=== PATIENT | female | born 1980 | race Caucasian/White ===

== ENCOUNTER 2023-10-01 13:55 | Outpatient (CLI) | payer BC, SELFPAY ==
--- NOTE | 2023-10-01 14:49 | ECG_ITS ---
Measurements Intervals [place] Rate: 57 P: 58 NM: 149 QRS: 26 QRSD: 89 T: 48 QT: 435 QTc: 424 Interpretive Statements SINUS BRADYCARDIA NO PREVIOUS ECG AVAILABLE FOR COMPARISON Electronically Signed On 10-03-2023 10:12:43 [employer] by Medardo Langford M.D.
[2023-10-01 15:17] LABS: Basophils Absolute Auto 0.1 K/mm3 (0.0-0.1); Basophils Percent Auto 1.3 % (0.2-1.2); Eosinophils Absolute Auto 0.1 K/mm3 (0-0.3); Eosinophils Percent Auto 1.3 % (0-4.4); Hematocrit 39.8 % (37.0-47.0); Hemoglobin 13.1 g/dL (12.0-15.0); Immature Granulocyte Absolute 0.01 K/mm3 (0.00-0.031); Immature Granulocyte Percent A 0.2 % (0-0.5); Lymphocytes Percent Auto 39.6 % (18.3-44.2); Mean Corpuscular HGB Conc 32.9 g/dl (32-36); Mean Corpuscular Hemoglobin 30.9 pg (26-34); Mean Corpuscular Volume 93.9 fl (80-100); Mean Platelet Volume 9.9 fl (7.4-10.4); Monocytes Absolute Auto 0.5 K/mm3 (0.1-0.6); Monocytes Percent Auto 9.1 % (2.6-8.5); Neutrophils Absolute Auto 2.6 K/mm3 (1.3-6.7); Neutrophils Percent Auto 48.5 % (45.5-73.1); Platelet Count Result 312 k/mm3 (150-375); Red Blood Count 4.24 M/mm3 (4.2-5.4); Red Cell Distribution Width 11.9 % (11.5-14.5); White Blood Count 5.3 K/mm3 (4.5-10.0)
[2023-10-01 15:28] LABS: INR 0.9; Partial Thromboplastin Time 27.3 SECONDS (22.3-36.8); Prothrombin Time 12.4 Seconds (11.1-14.7)
[2023-10-01 15:29] LABS: Alanine Aminotransferase 23 U/L (6-35); Albumin Level 4.7 g/dL (3.5-5.1); Alkaline Phosphatase 71 U/L (38-126); Anion Gap 8 mmol/L (8-16); Aspartate Amino Transferase 25 U/L (14-36); Bilirubin,Total 0.8 mg/dL (0.2-1.3); Blood Urea Nitrogen 12 mg/dL (7-17); Calcium 9.4 mg/dL (8.4-10.2); Carbon Dioxide 26 mmol/L (22-30); Chloride 104 mmol/L (98-107); Estimated Glomerular Filt Rate > 60; Glucose 92 mg/dL (65-110); Potassium 4.2 mmol/L (3.4-5.0); Sodium 138 mmol/L (137-145)
== END 2023-10-01 13:56 | disposition home or self-care (01) ==
PROVIDERS: Visit Provider Urology
DX: Z01.818 Encounter for other preprocedural examination (principal); N81.4 Uterovaginal prolapse, unspecified
CPT/HCPCS: 36415; 80053; 85025; 85610; 85730; 86850; 86900; 86901; 93005

== ENCOUNTER 2023-10-11 00:23 | Day surgery (SDC) | payer BC, SELFPAY ==
--- NOTE | 2023-10-01 14:24 | PC.NURSE ---
Report to the Outpatient Waiting Room, entrance under the green pavilion located off [facility], at time __0930 on date __10/11/23____. Planned Procedure Time: _1130 . Time changes happen often and if your time is changed the preop area will call you the afternoon before. - You and your visitor will be asked to self-screen and do not enter if you have any COVID symptoms. - A mask is optional within the hospital at this time. Patients may have clear liquids (water, carbonated beverages, clear teas, apple juice) until 3 hours prior to surgery ( 8:30 AM)with a maximum of 20 ounces. - No food from midnight until time of surgery Take the following medications with a SIP of water the morning of surgery: NONE DO NOT STOP ANY OF YOUR OTHER PRESCRIPTION MEDICATIONS PRIOR TO SURGERY ?EXCEPT THE FOLLOWING Medications to discontinue per physician HOLD MULTIVITAMIN 3 DAYS PRE OP.LAST DOSE 10/07/23 Please no make-up, nail italian, hairspray, perfume, deodorant, or body powder the day of surgery. No jewelry (including any body piercings) or valuables the day of surgery, leave them at home. Please take a shower or bath the night before, or the morning of, surgery with an antibacterial soap. Wear comfortable, loose fitting clothing. Children are encouraged to wear pajamas. - Jewelry must be removed prior to entering the operating room. Rings and piercings that are not removed may be cut off. - The hospital will not accept responsibility for valuables. - Please leave all valuables, including medications, at home the day of surgery. If you are going home after surgery, a licensed truck driver's offsider must drive you home. - NO public transportation without another adult if you receive anesthesia. - We recommend that an adult stay with you for 24 hours following discharge. - We also recommend that you do not drive, make important decision, drink alcoholic beverages, or take any drugs that were not prescribed by your health care provider for at least 24 hours after your discharge time. Follow any additional instructions given to you from your surgeon. If you or anyone in your household have experienced Covid symptoms in the past week, please notify your surgeon or the nurse liaison at the phone number below for possible testing. VERBAL AND WRITTEN instructions given to __PATIENT and asked if any additional questions and then verbalized understanding. Patient advised to call surgeon office or pre surgery nurse liaison [phone] if any additional questions.
[2023-10-01 14:41] VITALS: BP 136/95; PULSE 61; RESP 18; TEMP 36.4; O2SAT 99; BMI 27.0
--- NOTE | 2023-10-10 21:10 | PM.IMHP ---
H&P: HPI History of Present Illness Date/Time: 10/10/23 21:10 Chief Complaint: uterine prolapse Narrative: 42-year-old with uterine prolapse. No stress incontinence. Desires surgical correction Review of Systems Review of Systems: All systems reviewed & are unremarkable except as noted in HPI and below PMFSH Social History Social History Smoking packs per day: 0.5 Smoking cigarettes per day: 10.0 Years smoked: 20 Smoking pack-years: 10.00 Smoking status: Former smoker Tobacco type: cigarettes Smoking end date: 10/25/15 Alcohol intake: current Drinks per week: 10 Living arrangements: with family Spiritual care concerns: No Meds Home Medications and Allergies Home Medications Medication Instructions Recorded Confirmed Type ymxmzxnf-xsn-kylg-FA-Ca carb-vit K 1 tablet PO DAILY 10/01/23 10/01/23 History 18 mg iron-400 mcg-500 mg tablet Allergies Allergy/AdvReac Type Severity Reaction Status Date / Time bacitracin AdvReac Rash Verified 10/01/23 14:10 [From Polysporin(bacitracin base)] polymyxin B AdvReac Rash Verified 10/01/23 14:10 [From Polysporin(bacitracin base)] Exam Narrative: no acute distress normal breathing alert and oriented x3 uterine prolapse +3 Assessment and Plan Assessment and plan (1) Uterine prolapse: Code(s): N81.4 - Uterovaginal prolapse, unspecified Status: Acute Plan robotic colpopexy. Understand the risks of bleeding, infection, damage to surrounding organs, damage to the urinary tract, postoperative voiding dysfunction including incontinence and retention, hip and leg pain, dyspareunia, recurrence of prolapse. We also discussed issues surrounding pelvic organ prolapse surgery in young women. She agrees to proceed.
[2023-10-11] VITALS (9 sets, daily range): BP systolic 113–154; BP diastolic 52–93; PULSE 58–93; RESP 14–19; TEMP 36–36.8; O2SAT 97–100
--- NOTE | 2023-10-11 07:16 | WPDHPUPDATE1 ---
History and Physical Update Update Date/Time: 10/11/23 07:16 History and Physical has been reviewed, including an updated exam of the patient. There are NO changes in the patient's condition. Risks, benefits, and alternatives have been discussed and questions answered. Patient agrees to proceed with procedure.
[2023-10-11] MEDS: LACTATED RINGERS 1,000 ML 30 ML IV CONT ×3 (10:00→16:42)
[2023-10-11] MEDS: KETOROLAC 15 MG/ML VIAL (*BKC) IV PUSH (10:28)
[2023-10-11] MEDS: ACETAMINOPHEN 500 MG TABLET 1000 MG PO (10:28)
--- NOTE | 2023-10-11 10:30 | P.PNAN_ITS ---
Anes - Initial Pre Proc Eval Procedure: Operation Date: 10/11/23 11:30 Proposed Procedures p Robotic Sacrocolpopexy - John Paul Chaudhry MD s Urethral Sling - John Paul Chaudhry MD s Robotic Assisted Supracervical Hysterectomy Bilateral Salpingectomy - Verónica CaroleChai Carlson DO Date/Time: 10/11/23 10:30 Surgeon: John Paul Chaudhry MD Pre Op Diagnosis: uterine prolapse, stress incont Patient Data Age: 42 Gender: F Height: 1.83 m Weight: 90 kg Last Vital Signs Temp 36.0 C L 10/11/23 10:20 Pulse 58 L 10/11/23 10:20 Resp 16 10/11/23 10:20 BP 154/93 H 10/11/23 10:20 Pulse Ox 100 10/11/23 10:20 O2 Del Method Room Air 10/11/23 10:20 Allergies Allergy/AdvReac Type Severity Reaction Status Date / Time bacitracin AdvReac Rash Verified 10/11/23 10:19 [From Polysporin(bacitracin base)] polymyxin B AdvReac Rash Verified 10/11/23 10:19 [From Polysporin(bacitracin base)] Home Medications Medication Instructions Recorded Confirmed Type foguofsf-aot-fvec-FA-Ca carb-vit K 1 tablet PO DAILY 10/01/23 10/11/23 History 18 mg iron-400 mcg-500 mg tablet Patient hx anesthesia problems: none Family hx anesthesia problems: none Results Review: All pre-operative results and documents have been reviewed as part of the pre- operative evaluation. [facility] Social History Social History Smoking packs per day: 0.5 Smoking cigarettes per day: 10.0 Years smoked: 20 Smoking pack-years: 10.00 Smoking status: Former smoker Tobacco type: cigarettes Smoking end date: 10/25/15 Alcohol intake: current Drinks per week: 10 Living arrangements: with family Spiritual care concerns: No Anes - Eval Final PreProcedure Day of Procedure 10/11/23 10:30 Patient weight: overweight Heart: regular rate and rhythm Lungs: clear to auscultation Airway: Mallampati scale class II Neurological: alert and oriented Last oral intake: >/= 8 hours ASA classification: II Emergent: no Anesthesia type and monitoring: general ETT and standard monitoring Results Review: All pre-operative results and documents have been reviewed as part of the pre- operative evaluation. Informed Consent: The patient's anesthetic plan and its attendant risks and benefits were discussed with the patient/family/POA. Questions were solicited and answers provided to the satisfaction of the patient/family/POA.
--- NOTE | 2023-10-11 12:29 | PM.IMHP ---
H&P: HPI History of Present Illness Date/Time: 10/11/23 12:29 Chief Complaint: I'm here for a hysterectomy Narrative: Shelby presents for supracervical hysterectomy, bilateral salpingectomy for uterovaginal prolapse. Review of Systems Review of Systems: All systems reviewed & are unremarkable except as noted in HPI and below [facility] Social History Social History Smoking packs per day: 0.5 Smoking cigarettes per day: 10.0 Years smoked: 20 Smoking pack-years: 10.00 Smoking status: Former smoker Tobacco type: cigarettes Smoking end date: 10/25/15 Alcohol intake: current Drinks per week: 10 Living arrangements: with family Spiritual care concerns: No Meds Home Medications and Allergies Home Medications Medication Instructions Recorded Confirmed Type uqjexgpt-ykg-vauk-FA-Ca carb-vit K 1 tablet PO DAILY 10/01/23 10/11/23 History 18 mg iron-400 mcg-500 mg tablet Allergies Allergy/AdvReac Type Severity Reaction Status Date / Time bacitracin AdvReac Rash Verified 10/11/23 10:19 [From Polysporin(bacitracin base)] polymyxin B AdvReac Rash Verified 10/11/23 10:19 [From Polysporin(bacitracin base)] Vital Signs Vital Signs - 24 hr 10/11/23 10:20 Temperature 36.0 C L Pulse Rate 58 L Respiratory Rate 16 Blood Pressure 154/93 H Pulse Oximetry 100 Oxygen Delivery Room Air Exam Const: General: comfortable and no acute distress Eyes: General: appearance normal, both eyes and all related structures Sclera: sclerae normal Resp: Effort & Inspection: normal respiratory effort Auscultation: clear to auscultation bilaterally Cardio: Rate: regular rate Rhythm: regular rhythm GI: GI Palp: Yes Soft to palpation Auscultation: normal bowel sounds Psych: Mental Status: mental status grossly normal Assessment and Plan Assessment and plan (1) Uterine prolapse: Code(s): N81.4 - Uterovaginal prolapse, unspecified Status: Acute Plan Robotic assisted laparoscopic supracervical hysterectomy, bilatral salpingectomy.
--- NOTE | 2023-10-11 12:31 | WPDHPUPDATE1 ---
History and Physical Update Update Date/Time: 10/11/23 12:31 History and Physical has been reviewed, including an updated exam of the patient. There are NO changes in the patient's condition. Risks, benefits, and alternatives have been discussed and questions answered. Patient agrees to proceed with procedure.
[2023-10-11] MEDS: ceFAZolin 2 GM/D5W 50 ML 2 GM/50 ML BAG IVPB (12:35)
[2023-10-11] MEDS: metroNIDAZOLE 500 MG/ISO 100ML 500 MG/100 ML BAG 100 MG IVPB (12:35)
[2023-10-11] MEDS: BUPIVACAINE/EPINEPHRINE 0.5% 50 ML VIAL 20 ML INFILTRATE (13:04)
--- NOTE | 2023-10-11 14:28 | P.OP_ITS ---
Procedure Note - Detailed Date of Procedure 10/11/23 Pre-op Diagnosis Uterovaginal prolapse Post-op Diagnosis Same Procedure Performed Robotic assisted supracervical hysterectomy, drainage of right ovarian cyst, bilateral salpingectomy. Sacral colpopexy with Dr. Chaudhry Surgeon Verónica Carlson, DO Anesthesia General Findings Normal appearing pelvic organs. Simple cyst on the right ovary. Enlarged uterus. Description of Procedure Patient was taken to the operating room where she was placed under general anesthesia. She was prepped and draped in the normal sterile fashion in a dorsal lithotomy position. Preoperative antibiotics were given. Please see Dr. Chaudhry's note for further instructions on trocar placement. Once the robot was successfully docked, I presented to the console. Starting on the right-hand side, the right tube and ovary were elevated. The right simple cyst was drained and clear fluid was suctioned out. The right fallopian tube was then cauterized and transected off and handed off through the fast food assistant restaurant manager port. The utero-ovarian ligament was cauterized and transected and this dissection was carried up and through the round ligament. The 2 leaves of the broad ligament were opened and the anterior posterior leaves were down to skeletonize the uterine vessels. The vessels were cauterized and transected and minimal bladder flap was created. The procedure was repeated in identical fashion on the left-hand side. The left uterine vessels were skeletonized, cauterized and transected. Once the edges of the cervix were identified, the uterus was bivalved as it was too large to fit through a single incision intact. Each piece was then cut in half again for a total of 4 specimen pieces. The uterus was then removed from the cervix at the level of the internal os. Specimen pieces were placed in a specimen bag. Dr. Chaudhry then returned to the OR to complete his portion of the procedure. When I left the OR the patient was in stable condition and her family was updated. Preop counts had been correct. Estimated Blood Loss 10 Pathology Yes Complications No immediate complications Condition Stable Disposition PACU
--- NOTE | 2023-10-11 16:00 | W.PM.PROC2 ---
Procedure Note - Detailed Date of Procedure 10/11/23 Pre-op Diagnosis uterine prolapse Post-op Diagnosis Same Procedure Performed Robotic assisted laparoscopic sacral colpopexy Cystoscopy Surgeon John Paul Chaudhry MD Anesthesia General Indications this is a woman with uterine prolapse without stress incontinence. She desires surgical correction. She is here for the above. She understands risks of bleeding, infection, diskitis, damage to surrounding organs, bowel injury, bowel obstruction, mesh related complications including exposure and extrusion, postoperative voiding dysfunction including incontinence and retention, need for ancillary procedures, dyspareunia, recurrence of prolapse, and other perioperative intraoperative postoperative complications. She agrees to proceed. we also discussed issues surrounding prolapse repair in young women and the risk of rib Findings See below Description of Procedure She was correctly identified. Informed consent obtained. She from the operating room. She was given general anesthesia. She was given appropriate perioperative antibiotics. She was placed a low lithotomy position. Pressure points were padded. A time-out performed. I marked out the skin 3 fingerbreadths cephalad to the umbilicus. I anesthetized the skin. I incised the skin. I dissected down to the fascia. I grasped the fascia with Gregory clamps. I entered the fascia sharply in a Retana type technique. I placed sutures for later fascial closure. I placed a midline trocar. I examined the abdomen. There is no sign of any injury. Under direct vision I placed 2 additional trocars in the right upper quadrant and 2 additional trocars the left upper quadrant. She was placed in steep Trendelenburg. The robot was docked. Her knocker off completed their portion of the procedure. Please see that operative report for details. I then sat at the console. The Sizer in the vagina created plane on the anterior and posterior vaginal wall. I took great care not to injure the vagina, bladder, or rectum. I introduced the mesh into the abdomen. I sewed the anterior leaflet of mesh on the anterior vaginal wall. I sewed the posterior leaflet of mesh on the posterior vaginal wall. This was done with several sutures of 2 0 [place]-Bunny. I reflected the colon laterally. I opened the posterior peritoneum over the sacral promontory. I carried this into the cul-de-sac. I freed up the edges for later retroperitonealization. 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 it was completely located over top of the sacral promontory. This made it impossible for me to attach the mesh to the sacral promontory. I had to dissect inferiorly finding anterior longitudinal ligament of the sacrum inferior to this location. the ligament was somewhat thinner in this location but I still felt adequate. Again it was impossible for me to use the sacral promontory as it was completely covered by the left common iliac vein. I cleaned off all fatty tissues. I took great care not to injure the vein. I then tensioned my mesh appropriately. I did a vaginal exam the bedside. I assured prolapse reduction without undue tension. I then sewed the proximal leaflet of mesh onto the anterior longitudinal ligament of the sacrum with several sutures of 2 0 [place]Bunny. I then used a 2 0 Monocryl to completely and meticulously retroperitonealized all mesh. I allowed the colon to go back to its normal anatomic location. There is no sign of any impingement. The specimen was then removed. All ports removed. Fascia was tied down. Skin was closed with Monocryl and surgical glue. I then performed cystoscopy. There was no tumors or surgical artifact. Both ureters were seen to excrete clear yellow urine. There is no surgical artifact in the bladder or urethra. I cut the excess sling material. Close incision with glue. She was awakened and transferred
--- NOTE | 2023-10-11 16:08 | SUR.OPER ---
400mL of clear yellow urine drained from mckee
--- NOTE | 2023-10-11 18:25 | SUR.PHASEII ---
pt up to restroom, states she voided a small amount.
== END 2023-10-11 18:45 | disposition home or self-care (01) ==
PROVIDERS: Obstetrics & Gynecology Gynecologic Oncology; Visit Provider Urology
PROC: (CPT 57425; principal; 2023-10-11 11:30)
PROC: 0UT94ZZ Resection of Uterus, Percutaneous Endoscopic Approach (ICD-10-PCS; CPT 57425; 2023-10-11 11:30)
DX: N81.4 Uterovaginal prolapse, unspecified (principal); N83.201 Unspecified ovarian cyst, right side; N84.0 Polyp of corpus uteri; N83.8 Other noninflammatory disorders of ovary, fallopian tube and broad ligament; N80.03 Adenomyosis of the uterus; Z87.891 Personal history of nicotine dependence
CPT/HCPCS: 58542; 57425; S2900 ×2; 36415; 80053; 85025; 85610; 85730; 86850; 86900; 86901; 88302; 88307; 93005; A9270; C1781; J0360; J0690; J1100; J1170; J1836; J1885; J2250; J2405; J2704; J3010; J7030; J7120